=== PATIENT | female | born 1990 | race Caucasian/White ===

== ENCOUNTER 2018-11-02 06:01 | Day surgery (SDC) | payer MEDICAID ==
[2018-11-02 06:55] LABS: ABNORMAL IP MESSAGE 1; ADD MAN DIFF? NO; BASOPHILS % 0.8 % (0.0-2.0); EOSINOPHILS # 0.1 10^3/ul (0.0-0.5); HEMATOCRIT 36.9 % (37.0-47.0); HEMOGLOBIN 12.1 g/dl (12.0-16.0); LYMPHOCYTES # 1.9 10^3/ul (0.8-2.9); LYMPHOCYTES % 38.2 % (15.0-51.0); MEAN CORPUSCULAR HEMOGLOBIN 29.2 pg (29.0-33.0); MEAN CORPUSCULAR HGB CONC 32.8 g/dl (32.0-37.0); MEAN CORPUSCULAR VOLUME 89.1 fl (82.0-101.0); MEAN PLATELET VOLUME 13.1 fl (7.4-10.4); MONOCYTE # 0.4 10^3/ul (0.3-0.9); MONOCYTES % 7.6 % (0.0-11.0); NEUTROPHIL # 2.6 10^3/ul (1.6-7.5); NEUTROPHILS % 52.2 % (39.0-77.0); PLATELET COUNT 160 10^3/UL (140-415); RED BLOOD COUNT 4.14 10^6/ul (4.20-5.40); RED CELL DISTRIBUTION WIDTH 12.5 % (11.5-14.5)
[2018-11-02 07:04] LABS: POSITIVE DIFF @See below
[2018-11-02] MEDS ORDERED: DIPHENHYDRAMINE 50 MG INJ IV (07:30)
[2018-11-02] MEDS ORDERED: MEPERIDINE 25 MG INJ IV (07:30)
[2018-11-02] MEDS ORDERED: OXYCODONE/ACETAMINOPHEN (5/325) TAB PO ×2 (07:30)
[2018-11-02] MEDS ORDERED: HYDROmorphONE 1 MG/5 ML IV SYRINGE IV (07:30)
[2018-11-02] MEDS ORDERED: KETOROLAC 30 MG INJ IV (07:30)
[2018-11-02] MEDS ORDERED: PROPOFOL 20 ML (07:38)
[2018-11-02] MEDS ORDERED: MIDAZOLAM 1 MG/ML 2 ML INJ (07:38)
[2018-11-02] MEDS ORDERED: NEOSTIGMINE 3 MG/3 ML SYRINGE (07:38)
[2018-11-02] MEDS ORDERED: ONDANSETRON 4 MG INJ (07:38)
[2018-11-02] MEDS ORDERED: ROPIVACAINE 0.5 % 30 ML VIAL (07:38)
[2018-11-02] MEDS ORDERED: ROCURONIUM 50 MG INJ (07:38)
[2018-11-02] MEDS ORDERED: METOCLOPRAMIDE 10 MG INJ (07:38)
[2018-11-02] MEDS ORDERED: KETOROLAC 30 MG INJ (07:42)
[2018-11-02] MEDS ORDERED: CEFAZOLIN 1 GM INJ (08:12)
[2018-11-02] MEDS: HYDROmorphONE 1 MG/5 ML IV SYRINGE IV ×2 (09:04→09:29)
[2018-11-02] MEDS: ONDANSETRON 4 MG INJ IV (09:05)
== END 2018-11-02 11:15 | disposition home or self-care (01) ==
LOC: SDS 06:01
DX: Z30.2 Encounter for sterilization (principal)
CPT/HCPCS: 58670; 85025